=== PATIENT | male | born 1935 | race Caucasian/White ===

== ENCOUNTER 2022-06-11 17:41 | Emergency (ER) | payer MEDICARE | END 2022-06-11 21:20 | disposition home or self-care (01) | LOC: ER1 17:41 | DX: S51.812A Laceration without foreign body of left forearm, initial encounter (principal); I10 Essential (primary) hypertension; Z90.89 Acquired absence of other organs; Z85.828 Personal history of other malignant neoplasm of skin; W01.10XA Fall on same level from slipping, tripping and stumbling with subsequent striking against unspecified object, initial encounter | CPT/HCPCS: 90471; 90715; 99282 ==